=== PATIENT | male | born 1995 | race Caucasian/White ===

== ENCOUNTER 2025-09-01 16:12 | Emergency (ER) | payer OTHER ==
[~2025-09-01] VITALS: Ht 175.3 cm; Wt 59.4 kg
[2025-09-01 16:35] VITALS: BP 136/89; TEMP 98; O2SAT 99
== END 2025-09-01 20:30 | disposition left against medical advice (07) ==
LOC: ER 16:31
DX: F10.129 Alcohol abuse with intoxication, unspecified (principal); Y90.9 Presence of alcohol in blood, level not specified